=== PATIENT | male | born 1980 | race Caucasian/White ===

== ENCOUNTER 2017-10-04 08:14 | Emergency (ER) | payer SELFPAY ==
[~2017-10-04] VITALS: Ht 175.3 cm; Wt 75.0 kg
[2017-10-04] MEDS ORDERED: LEVETIRACETAM 1000MG/100ML 100 ML IV ONE (08:30)
[2017-10-04 09:00] LABS: BASOPHILS % 0.6 % (0.0-2.0); EOSINOPHILS % 3.3 % (0.0-5.0); HEMATOCRIT. 46.4 % (42.0-52.0); HEMOGLOBIN. 15.9 g/dL (14.0-18.0); LYMPHOCYTES % 42.1 % (20.0-50.0); MEAN CORPUSCULAR HEMOGLOBIN 31.4 pg (28.0-32.0); MEAN CORPUSCULAR VOLUME 91.6 fL (80.0-94.0); MEAN PLATELET VOLUME 8.5 fl (7.4-10.4); PLATELET 320 x1000/uL (130-400); RED BLOOD CELL COUNT 5.07 mill/uL (4.7-6.1); RED CELL DISTRIBUTION WIDTH 14.2 % (11.6-14.6)
[2017-10-04 09:07] LABS: INR 1.1; PROTHROMBIN TIME 11.3 sec (9.4-11.6)
[2017-10-04 09:12] LABS: CHLORIDE 105 mEq/L (98-107)
[2017-10-04 09:16] LABS: ETHANOL BLOOD < 10 mg/dL
[2017-10-04 09:32] LABS: AMMONIA 192 uMol/L (<32)
[2017-10-04 09:36] LABS: DIGOXIN < 0.1 ng/mL (0.9-2.0)
[2017-10-04 17:00] VITALS: BP 142/60
== END 2017-10-04 17:20 | disposition home or self-care (01) ==
LOC: ER 08:38
DX: R56.9 Unspecified convulsions (principal); R47.1 Dysarthria and anarthria; H18.899 Other specified disorders of cornea, unspecified eye
CPT/HCPCS: 36415; 70450; 70544; 70553; 80053; 80162; 82140; 82962; 83880; 84484; 85025; 85610; 93005; 96365; 99285; G0482; J1953; Z7610